=== PATIENT | female | born 1965 | race Caucasian/White ===

== ENCOUNTER 2016-12-06 07:51 | Day surgery (SDC) | payer OTHER ==
[~2016-12-06] VITALS: Ht 157.5 cm; Wt 86.2 kg
[~2016-12-06 07:51] MED LIST: GLUCOSAMINE R1000 MG PO; MULTIPLE VITAM1 EACH PO; VALTREX50 MG/ML PO
[2016-12-06 08:11] VITALS: BP 140/84
[2016-12-06] MEDS ORDERED: IBUPROFEN800 MG PO (10:02)
[2016-12-06] MEDS ORDERED: ENDOCET 5-3251 EACH PO (10:02)
[2016-12-06 11:41] VITALS: BP 147/87
[2016-12-06 12:30] VITALS: BP 142/89
== END 2016-12-06 13:30 | disposition home or self-care (01) ==
LOC: SDC 07:51
PROC: 0UT74ZZ Resection of Bilateral Fallopian Tubes, Percutaneous Endoscopic Approach (ICD-10-PCS; principal; 2016-12-06)
PROC: 0UT94ZZ Resection of Uterus, Percutaneous Endoscopic Approach (ICD-10-PCS; principal; 2016-12-06)
DX: N92.0 Excessive and frequent menstruation with regular cycle (principal); N72 Inflammatory disease of cervix uteri; D25.9 Leiomyoma of uterus, unspecified; N80.0 Endometriosis of uterus
CPT/HCPCS: 88307; J0131; J0330; J1100; J1580; J1885; J2250; J2405; J2710; J3010; J7050